=== PATIENT | female | born 1955 | race Caucasian/White ===

== ENCOUNTER → 2016-03-05 | Outpatient (CLI) | payer BC ==
[~2016-03-05] VITALS: Ht 160 cm; Wt 88.9 kg
[~2016-03-05] MED LIST: ASPIRIN E.C. 8181 MG PO; BIOTIN10000 MC1 PO; CALTRATE-600 W600 MG PO; CINNAMON500 MG PO; COMPLETE SENIOR1 TA1 PO; COZAAR100 MG PO; ESTRACE0.1 MG/GM VG; FISH OIL 1000MG1 CAP PO; L-LYSINE MONOHY1 POW PO; LIPITOR 40MG TA40 MG PO; MOBIC15 MG PO; PHARMASSURE ZIN50 MG PO; PHENTERMINE15 MG; PROAIR HFA0.09 MG/AC IH; TRICOR145 MG PO; ZETIA 10MG TAB10 MG PO
[2016-03-05 10:43] VITALS: BP 126/64; PULSE 64
[2016-03-05 11:15] VITALS: BP 126/64; PULSE 64
== END ==
LOC: LIGHT 10:35
DX: E78.4 Other hyperlipidemia (principal); G47.33 Obstructive sleep apnea (adult) (pediatric); E66.09 Other obesity due to excess calories; Z68.34 Body mass index [BMI] 34.0-34.9, adult; M51.36 Other intervertebral disc degeneration, lumbar region

== ENCOUNTER → 2016-04-09 | Outpatient (CLI) | payer BC ==
[~2016-04-09] VITALS: Ht 160 cm; Wt 82.8 kg
[2016-04-09 15:28] VITALS: BP 139/67; PULSE 64
[2016-04-09 15:54] VITALS: BP 139/67; PULSE 64
== END ==
LOC: LIGHT 12:56
DX: E78.4 Other hyperlipidemia (principal); G47.33 Obstructive sleep apnea (adult) (pediatric); M51.36 Other intervertebral disc degeneration, lumbar region; E66.09 Other obesity due to excess calories; Z68.32 Body mass index [BMI] 32.0-32.9, adult

== ENCOUNTER → 2016-05-14 | Outpatient (CLI) | payer BC ==
[~2016-05-14] VITALS: Ht 160 cm; Wt 80.1 kg
[2016-05-14 16:27] VITALS: BP 141/70; PULSE 52
== END ==
LOC: LIGHT 11:55
DX: E78.4 Other hyperlipidemia (principal); G47.33 Obstructive sleep apnea (adult) (pediatric); E66.8 Other obesity; Z68.31 Body mass index [BMI] 31.0-31.9, adult; M51.36 Other intervertebral disc degeneration, lumbar region; Z90.710 Acquired absence of both cervix and uterus

== ENCOUNTER → 2017-03-05 | Outpatient (CLI) | payer BC | LOC: MC.RAD 08:37 | DX: Z12.31 Encounter for screening mammogram for malignant neoplasm of breast (principal) ==

== ENCOUNTER → 2018-09-22 | Outpatient (CLI) | payer BC | LOC: MC.RAD 09:27 | DX: Z12.31 Encounter for screening mammogram for malignant neoplasm of breast (principal) ==

== ENCOUNTER 2019-02-23 16:00 | Outpatient (RCR) | payer BC | END 2019-02-27 16:34 | disposition home or self-care (01) | LOC: WSPT 16:00 | DX: M54.5 Low back pain (principal) ==

== ENCOUNTER 2019-03-28 10:57 | Outpatient (RCR) | payer BC | END 2019-06-26 | disposition home or self-care (01) | LOC: WSPT | DX: M70.62 Trochanteric bursitis, left hip (principal) ==

== ENCOUNTER → 2019-09-26 | Outpatient (CLI) | payer MEDICARE, BC | LOC: MC.RAD 07:41 | DX: Z12.31 Encounter for screening mammogram for malignant neoplasm of breast (principal) ==

== ENCOUNTER → 2020-12-12 | Outpatient (CLI) | payer MEDICARE, BC | LOC: MC.RAD 16:21 | DX: Z12.31 Encounter for screening mammogram for malignant neoplasm of breast (principal); Z00.00 Encounter for general adult medical examination without abnormal findings ==

== ENCOUNTER → 2022-03-25 | Outpatient (CLI) | payer MEDICARE, BC | LOC: MC.RAD 07:50 | DX: Z12.31 Encounter for screening mammogram for malignant neoplasm of breast (principal) ==